=== PATIENT | female | born 1960 ===

== ENCOUNTER 2017-01-17 18:06 | Inpatient (IN) | payer MEDICAID ==
[2017-01-17] MEDS ORDERED: Sodium Chloride 0.9% 1,000 ML IV STA (18:56)
--- NOTE | 2017-01-17 19:22 | ED PDOC ---
HPI: Abdomen Time Seen by Provider: 01/17/17 18:36 Chief Complaint (Nursing): Abdominal Pain Chief Complaint (Provider): Abdominal Pain History Per: Patient History/Exam Limitations: no limitations Onset/Duration Of Symptoms: Hrs (x1 hr) Current Symptoms Are (Timing): Still Present Additional Complaint(s): 56 y/o female presents to the emergency department with a complaint of a sharp abdominal pain that began about 1 hour prior to arrival. Associated with 1 episode of vomiting. Reports last normal bowel movement was today. Denies constipation and fever. Past Medical History Reviewed: Historical Data, Nursing Documentation, Vital Signs Vital Signs: Last Vital Signs Temp 98.5 F 01/17/17 18:29 Pulse 63 01/17/17 18:29 Resp 17 01/17/17 18:29 BP 124/76 01/17/17 18:29 Pulse Ox 98 01/17/17 21:55 - Medical History PMH: No Chronic Diseases - Surgical History Other surgeries: Tubal Ligation - Family History Family History: States: Unknown Family Hx - Social History Current smoker - smoking cessation education provided: No Alcohol: None Drugs: Denies - Allergies Allergies/Adverse Reactions: Allergies Allergy/AdvReac Type Severity Reaction Status Date / Time sulfamethoxazole Allergy RASH Verified 01/17/17 18:32 [From Bactrim] trimethoprim [From Bactrim] Allergy RASH Verified 01/17/17 18:32 Review of Systems ROS Statement: Except As Marked, All Systems Reviewed And Found Negative Constitutional: Negative for: Fever Gastrointestinal: Positive for: Vomiting (1 episode), Abdominal Pain. Negative for: Constipation Physical Exam - Reviewed Nursing Documentation Reviewed: Yes Vital Signs Reviewed: Yes - Physical Exam Appears: Positive for: Non-toxic, In Acute Distress (Mild) Head Exam: Positive for: ATRAUMATIC, NORMAL INSPECTION, NORMOCEPHALIC Skin: Positive for: Normal Color, Warm, Dry Cardiovascular/Chest: Positive for: Regular Rate, Rhythm. Negative for: Murmur Respiratory: Positive for: Normal Breath Sounds. Negative for: Accessory Muscle Use, Respiratory Distress Gastrointestinal/Abdominal: Positive for: Soft, Tenderness (Epigastric and RUQ tenderness). Negative for: Normal Exam, Guarding, Rebound Extremity: Positive for: Normal ROM. Negative for: Pedal Edema Neurologic/Psych: Positive for: Alert, Oriented (x3) - Laboratory Results Result Diagrams: 01/17/17 19:25 01/17/17 19:25 - ECG O2 Sat by Pulse Oximetry: 98 (RA) Pulse Ox Interpretation: Normal Medical Decision Making Medical Decision Making: Time: 1857 Initial Impression: Abdominal Pain Initial Plan: --EKG --CMP --Lipase --Urine DIP --CBC w/ diff --PTT & Prothrombin --Morphine 2 mg IV --Sodium Chloride 1L mls/hr --Zofran 4 mg IV --Urinalysis --Abdomen US --Reevaluation Time: 2052 --Abdomen US FINDINGS: Liver: Normal echogenicity. No mass. No intrahepatic bile duct dilatation. Gallbladder: Gallstones. No wall thickening. No pericholecystic fluid. No sonographic Ardon's sign. Common bile duct: Up to 0.71 cm in diameter. No stones. Pancreas: Unremarkable as visualized. Right kidney: Normal echogenicity. No hydronephrosis. IMPRESSION: 1. Cholelithiasis. 2. Mild biliary ductal dilatation. Consider MRCP Time: 2199 Admit to hospital routine: As inpatient in Med/Surg for cholelithiasis and r/o choledocholithiasis under the care of Dr. Lucio Christian MD Scribe Attestation: Documented by Sandra Aviles, acting as a scribe for Caterina Combs MD. Provider Scribe Attestation: All medical record entries made by the Scribe were at my direction and personally dictated by me. I have reviewed the chart and agree that the record accurately reflects my personal performance of the history, physical exam, medical decision making, and the department course for this patient. I have also personally directed, reviewed, and agree with the discharge instructions and disposition. Disposition - Patient ED Disposition Is Patient to be Admitted: Yes (As inpatient in Med/Surg under the care of Dr. Lucio Christian) Counseled Patient/Family Regarding: Diagnosis - Disposition Disposition Time: 22:00 Condition: FAIR
[2017-01-17 19:32] LABS: BASO % 0.4 % (0.0-2.0); EOS # 0.1 K/uL (0.0-0.7); EOS % 0.8 % (0.0-4.0); HEMATOCRIT 41.7 % (34.0-47.0); MEAN CELL VOLUME 87.2 fl (81.0-99.0); MEAN CORPUSCULAR HEMOGLOBIN 28.9 pg (27.0-31.0); MEAN CORPUSCULAR HGB CONC 33.1 g/dL (33.0-37.0); MEAN PLATELET VOLUME 10.4 fl (7.2-11.7); MONO # 0.5 K/uL (0.0-0.8); MONO % 4.6 % (0.0-10.0); NEUT % 75.2 % (50.0-75.0); RED CELL DISTRIBUTION WIDTH 13.8 % (11.5-14.5); WHITE BLOOD COUNT 10.7 K/uL (4.8-10.8)
[2017-01-17 19:41] LABS: ALB/GLOB RATIO 1.6 (1.0-2.1); ALKALINE PHOSPHATASE 115 U/L (38-126); ALT/SGPT 40 U/L (9-52); AST/SGOT 35 U/L (14-36); BILIRUBIN,TOTAL 0.5 mg/dl (0.2-1.3); BLOOD UREA NITROGEN 25 mg/dl (7-17); CALCIUM 10.1 mg/dL (8.4-10.2); CARBON DIOXIDE 26 mmol/L (22-30); CHLORIDE 104 mmol/L (98-107); GFR AFRICAN-AMERICAN > 60; GLUCOSE,RANDOM 115 mg/dL (65-105); LIPASE 53 U/L (23-300); PARTIAL THROMBOPLASTIN TIME 31.9 Seconds (25.6-37.1); POTASSIUM 4.5 MMOL/L (3.6-5.0); SODIUM 145 mmol/l (132-148); TOTAL PROTEIN 7.7 G/DL (6.3-8.2)
[2017-01-17 20:17] LABS: RBC URINE 15 /hpf (0-3); URINE BACTERIA RARE (<OCC); URINE BILIRUBIN NEGATIVE (NEGATIVE); URINE BLOOD MODERATE (NEGATIVE); URINE COLOR YELLOW (YELLOW); URINE GLUCOSE (UA) NEG (Normal); URINE KETONE 20 mg/dL (NEGATIVE); URINE LEUKOCYTE ESTERASE NEG Leu/uL (Negative); URINE PROTEIN 30 mg/dL (NEGATIVE); URINE UROBILINOGEN 0.2-1.0 mg/dL (0.2-1.0); WBC URINE 1 /hpf (0-5)
--- NOTE | 2017-01-17 20:53 | US ---
EXAM: US Abdomen Limited, Right Upper Quadrant CLINICAL HISTORY: 56 years old, female; Pain; Abdominal pain; Epigastric; Additional info: Epigastric/ruq pain TECHNIQUE: Real-time ultrasound of the right upper quadrant with image documentation. COMPARISON: No relevant prior studies available. FINDINGS: Liver: Normal echogenicity. No mass. No intrahepatic bile duct dilatation. Gallbladder: Gallstones. No wall thickening. No pericholecystic fluid. No sonographic Ardon's sign. Common bile duct: Up to 0.71 cm in diameter. No stones. Pancreas: Unremarkable as visualized. Right kidney: Normal echogenicity. No hydronephrosis. IMPRESSION: 1. Cholelithiasis. 2. Mild biliary ductal dilatation. Consider MRCP.
--- NOTE | 2017-01-18 00:32 | CP.PCM.CON ---
<July Acevedo - Last Filed: 01/18/17 00:27> History of Present Illness - History of Present Illness History of Present Illness: Surgery: Dr. Salmeron Reason for consult: cholelithiasis CC: RUQ abdominal pain HPI: Patient is a 56 y/o female who presents complaining of acute onset RUQ abdominal pain that started around 5pm this evening. She states she was sitting at her desk with the pain started acutely. She describes the pain as sharp stabbing and nonradiating. She reports associated nausea and vomiting x 1 episode. She denies having pain like this in the past. She reports having pork chop with sofia for lunch due to her new Damir's diet. She states she started the low carb high fat diet at the end of November and has since lost almost 30lbs. She also reports being on an appetite suppressant medication for the past 3 months prescribes by her doctor. She denies f/c constipation or diarrhea. PMH: PSH: tubal ligation, lipoma excision from right upper back Social: denies etoh, drug abuse. Review of Systems - Review of Systems All systems: reviewed and no additional remarkable complaints except Review of Systems: unless states in HPI Past Patient History - Past Medical History & Family History Past Medical History?: Yes - Past Social History Smoking Status: Never Smoked - MUSCULOSKELETAL/RHEUMATOLOGICAL Hx Falls: No - PSYCHIATRIC Hx Substance Use: No - SURGICAL HISTORY Hx Tubal Ligation: Yes Other/Comment: Lipoma to back - ANESTHESIA Hx Anesthesia: Yes Hx Anesthesia Reactions: No Meds Allergies/Adverse Reactions: Allergies Allergy/AdvReac Type Severity Reaction Status Date / Time sulfamethoxazole Allergy RASH Verified 01/17/17 18:32 [From Bactrim] trimethoprim [From Bactrim] Allergy RASH Verified 01/17/17 18:32 - Medications Medications: Current Medications Famotidine (Pepcid) 20 mg IVP Q12 [facility] Morphine Sulfate (Morphine) 4 mg IVP Q4 PRN PRN Reason: pain 6-10 Ondansetron HCl (Zofran Inj) 4 mg IVP Q6 PRN PRN Reason: Nausea/Vomiting Physical Exam - Constitutional Appears: Non-toxic, No Acute Distress - Head Exam Head Exam: ATRAUMATIC, NORMOCEPHALIC - Eye Exam Eye Exam: EOMI, Normal appearance - ENT Exam ENT Exam: Mucous Membranes Moist - Respiratory Exam Respiratory Exam: NORMAL BREATHING PATTERN. absent: Respiratory Distress - Cardiovascular Exam Cardiovascular Exam: REGULAR RHYTHM. absent: Tachycardia - GI/Abdominal Exam GI & Abdominal Exam: Soft. absent: Distended, Guarding, Rebound, Rigid, Tenderness - Extremities Exam Extremities exam: Positive for: normal inspection. Negative for: calf tenderness - Neurological Exam Neurological exam: Alert - Psychiatric Exam Psychiatric exam: Normal Affect, Normal Mood - Skin Skin Exam: Dry, Normal Color, Warm Results - Vital Signs Recent Vital Signs: Last Vital Signs Temp 97.7 F 01/18/17 00:00 Pulse 63 01/18/17 00:00 Resp 19 01/18/17 00:00 BP 133/74 01/18/17 00:00 Pulse Ox 98 01/18/17 00:00 - Labs Result Diagrams: 01/17/17 19:25 01/17/17 19:25 Labs: Laboratory Results - last 24 hr 01/17/17 01/17/17 01/17/17 19:25 19:25 19:25 WBC 10.7 RBC 4.78 Hgb 13.8 Hct 41.7 MCV 87.2 MCH 28.9 MCHC 33.1 RDW 13.8 Plt Count 179 MPV 10.4 Neut % (Auto) 75.2 H Lymph % (Auto) 19.0 L [place] % (Auto) 4.6 Eos % (Auto) 0.8 Baso % (Auto) 0.4 Neut # 8.0 H Lymph # 2.0 Nance # 0.5 Eos # 0.1 Baso # 0.0 PT 11.2 INR 1.0 APTT 31.9 Sodium 145 Potassium 4.5 Chloride 104 Carbon Dioxide 26 Anion Gap 19 BUN 25 H Creatinine 0.8 Est GFR ( Amer) > 60 Est GFR (Non-Af Amer) > 60 Random Glucose 115 H Calcium 10.1 Total Bilirubin 0.5 AST 35 ALT 40 Alkaline Phosphatase 115 Total Protein 7.7 Albumin 4.8 Globulin 2.9 Albumin/Globulin Ratio 1.6 Lipase 53 Urine Color Urine Clarity Urine pH Ur Specific [place] Urine Protein Urine Glucose (UA) Urine Ketones Urine Blood Urine Nitrate Urine Bilirubin Urine Urobilinogen Ur Leukocyte Esterase Urine RBC (Auto) Urine Microscopic WBC Ur Squamous Epith Cells Urine Bacteria 01/17/17 20:00 WBC RBC Hgb Hct MCV MCH MCHC RDW Plt Count MPV Neut % (Auto) Lymph % (Auto) [place] % (Auto) Eos % (Auto) Baso % (Auto) Neut # Lymph # [place] # Eos # Baso # PT INR APTT Sodium Potassium Chloride Carbon Dioxide Anion Gap BUN Creatinine Est GFR ( Amer) Est GFR (Non-Af Amer) Random Glucose Calcium Total Bilirubin AST ALT Alkaline Phosphatase Total Protein Albumin Globulin Albumin/Globulin Ratio Lipase Urine Color Yellow Urine Clarity Slighty-cloudy Urine pH 5.0 Ur Specific [place] 1.028 Urine Protein 30 Urine Glucose (UA) Neg Urine Ketones 20 Urine Blood Moderate Urine Nitrate Negative Urine Bilirubin Negative Urine Urobilinogen 0.2-1.0 Ur Leukocyte Esterase Neg Urine RBC (Auto) 15 H Urine Microscopic WBC 1 Ur Squamous Epith Cells 1 Urine Bacteria Rare Assessment & Plan - Assessment and Plan (Free Text) Assessment: 56 y/o female w/ biliary colic Plan: -MRCP per primary- CBD 7mm -no evidence of acute cholecystitis on imaging or clinical exam -keep NPO for now -IVFs -pain control -am labs -further recs per Dr. Salmeron [facility] PGY3 <Jeremy Salmeron - Last Filed: 01/18/17 10:33> History of Present Illness - History of Present Illness History of Present Illness: Patient was seen and examined at the bedside. Agree with resident's note above. Meds - Medications Medications: Current Medications Famotidine (Pepcid) 20 mg IVP Q12 [facility] Lactated Ringer's (Lactated Ringer's) 1,000 mls @ 100 mls/hr IV .Q10H [facility] Last Admin: 01/18/17 01:00 Dose: 100 mls/hr Morphine Sulfate (Morphine) 4 mg IVP Q4 PRN PRN Reason: pain 6-10 Ondansetron HCl (Zofran Inj) 4 mg IVP Q6 PRN PRN Reason: Nausea/Vomiting Results - Vital Signs Recent Vital Signs: Last Vital Signs Temp 97.8 F 01/18/17 08:15 Pulse 57 L 01/18/17 08:15 Resp 20 01/18/17 08:15 BP 103/65 01/18/17 08:15 Pulse Ox 94 L 01/18/17 08:15 - Labs Result Diagrams: 01/18/17 05:45 01/18/17 05:45 Labs: Laboratory Results - last 24 hr 01/17/17 01/17/17 01/17/17 19:25 19:25 19:25 WBC 10.7 RBC 4.78 Hgb 13.8 Hct 41.7 MCV 87.2 MCH 28.9 MCHC 33.1 RDW 13.8 Plt Count 179 MPV 10.4 Neut % (Auto) 75.2 H Lymph % (Auto) 19.0 L [place] % (Auto) 4.6 Eos % (Auto) 0.8 Baso % (Auto) 0.4 Neut # 8.0 H Lymph # 2.0 Nance # 0.5 Eos # 0.1 Baso # 0.0 PT 11.2 INR 1.0 APTT 31.9 Sodium 145 Potassium 4.5 Chloride 104 Carbon Dioxide 26 Anion Gap 19 BUN 25 H Creatinine 0.8 Est GFR ( Amer) > 60 Est GFR (Non-Af Amer) > 60 Random Glucose 115 H Calcium 10.1 Total Bilirubin 0.5 AST 35 ALT 40 Alkaline Phosphatase 115 Total Protein 7.7 Albumin 4.8 Globulin 2.9 Albumin/Globulin Ratio 1.6 Lipase 53 Urine Color Urine Clarity Urine pH Ur Specific [place] Urine Protein Urine Glucose (UA) Urine Ketones Urine Blood Urine Nitrate Urine Bilirubin Urine Urobilinogen Ur Leukocyte Esterase Urine RBC (Auto) Urine Microscopic WBC Ur Squamous Epith Cells Urine Bacteria 01/17/17 01/18/17 01/18/17 20:00 05:45 05:45 WBC 7.0 RBC 4.38 Hgb 12.8 Hct 38.5 MCV 87.9 MCH 29.3 MCHC 33.3 RDW 14.1 Plt Count 169 MPV 10.6 Neut % (Auto) 52.9 Lymph % (Auto) 38.5 [place] % (Auto) 6.7 Eos % (Auto) 1.6 Baso % (Auto) 0.3 Neut # 3.7 Lymph # 2.7 Nance # 0.5 Eos # 0.1 Baso # 0.0 PT INR APTT Sodium 143 Potassium 4.3 Chloride 111 H Carbon Dioxide 21 L Anion Gap 15 BUN 16 Creatinine 0.7 Est GFR ( Amer) > 60 Est GFR (Non-Af Amer) > 60 Random Glucose 89 Calcium 9.3 Total Bilirubin 0.4 AST 30 ALT 35 Alkaline Phosphatase 99 Total Protein 6.4 Albumin 3.8 Globulin 2.6 Albumin/Globulin Ratio 1.4 Lipase 29 Urine Color Yellow Urine Clarity Slighty-cloudy Urine pH 5.0 Ur Specific [place] 1.028 Urine Protein 30 Urine Glucose (UA) Neg Urine Ketones 20 Urine Blood Moderate Urine Nitrate Negative Urine Bilirubin Negative Urine Urobilinogen 0.2-1.0 Ur Leukocyte Esterase Neg Urine RBC (Auto) 15 H Urine Microscopic WBC 1 Ur Squamous Epith Cells 1 Urine Bacteria Rare - Imaging and Cardiology US - abdomen Status: Image reviewed by me, Report reviewed by me Assessment & Plan - Assessment and Plan (Free Text) Plan: - NPO - IV fluids - pain control - MRCP - If MRCP normal will need cholecystectomy - Will follow
[2017-01-18] MEDS: Lactated Ringer's 1,000 ML IV SCH ×2 (01:00→10:35)
[2017-01-18 06:41] LABS: ALB/GLOB RATIO 1.4 (1.0-2.1); ALKALINE PHOSPHATASE 99 U/L (38-126); ALT/SGPT 35 U/L (9-52); AST/SGOT 30 U/L (14-36); BILIRUBIN,TOTAL 0.4 mg/dl (0.2-1.3); BLOOD UREA NITROGEN 16 mg/dl (7-17); CALCIUM 9.3 mg/dL (8.4-10.2); CARBON DIOXIDE 21 mmol/L (22-30); CHLORIDE 111 mmol/L (98-107); GFR AFRICAN-AMERICAN > 60; GLUCOSE,RANDOM 89 mg/dL (65-105); LIPASE 29 U/L (23-300); POTASSIUM 4.3 MMOL/L (3.6-5.0); SODIUM 143 mmol/l (132-148); TOTAL PROTEIN 6.4 G/DL (6.3-8.2)
[2017-01-18 07:11] LABS: BASO % 0.3 % (0.0-2.0); EOS # 0.1 K/uL (0.0-0.7); EOS % 1.6 % (0.0-4.0); HEMATOCRIT 38.5 % (34.0-47.0); LYMPH # 2.7 K/uL (1.0-4.3); LYMPH % 38.5 % (20.0-40.0); MEAN CELL VOLUME 87.9 fl (81.0-99.0); MEAN CORPUSCULAR HEMOGLOBIN 29.3 pg (27.0-31.0); MEAN CORPUSCULAR HGB CONC 33.3 g/dL (33.0-37.0); MEAN PLATELET VOLUME 10.6 fl (7.2-11.7); MONO # 0.5 K/uL (0.0-0.8); MONO % 6.7 % (0.0-10.0); NEUT # 3.7 K/uL (1.8-7.0); NEUT % 52.9 % (50.0-75.0); NRBC % 0.1 % (0.0-0.0); RED CELL DISTRIBUTION WIDTH 14.1 % (11.5-14.5)
--- NOTE | 2017-01-18 07:18 | CP.PCM.HP ---
History of Present Illness - History of Present Illness History of Present Illness: pt admitted for dialated cbd. had ruq pain last night but at present just sore. seen w/ surgical residents mrcp pending. bw noted. no f/c, n/v/d. has been on atkins diet and taking weight loss meds Present on Admission - Present on Admission Any Indicators Present on Admission: No Review of Systems - Gastrointestinal Gastrointestinal: As Per HPI, Abdominal Pain Past Patient History - Past Medical History & Family History Past Medical History?: Yes - Past Social History Smoking Status: Never Smoked - MUSCULOSKELETAL/RHEUMATOLOGICAL Hx Falls: No - PSYCHIATRIC Hx Substance Use: No - SURGICAL HISTORY Hx Tubal Ligation: Yes Other/Comment: Lipoma to back - ANESTHESIA Hx Anesthesia: Yes Hx Anesthesia Reactions: No Meds Allergies/Adverse Reactions: Allergies Allergy/AdvReac Type Severity Reaction Status Date / Time sulfamethoxazole Allergy RASH Verified 01/17/17 18:32 [From Bactrim] trimethoprim [From Bactrim] Allergy RASH Verified 01/17/17 18:32 Physical Exam - Constitutional Appears: Well, Non-toxic, No Acute Distress - Head Exam Head Exam: ATRAUMATIC, NORMAL INSPECTION, NORMOCEPHALIC - Eye Exam Eye Exam: EOMI, Normal appearance, PERRL Pupil Exam: NORMAL ACCOMODATION, PERRL - ENT Exam ENT Exam: Mucous Membranes Moist, Normal Exam - Neck Exam Neck exam: Positive for: Normal Inspection - Respiratory Exam Respiratory Exam: Clear to Auscultation Bilateral, NORMAL BREATHING PATTERN - Cardiovascular Exam Cardiovascular Exam: REGULAR RHYTHM, RRR, +S1, +S2 - GI/Abdominal Exam GI & Abdominal Exam: Normal Bowel Sounds, Soft. absent: Tenderness - Extremities Exam Extremities exam: Positive for: full ROM, normal capillary refill, normal inspection, pedal pulses present - Back Exam Back exam: NORMAL INSPECTION - Neurological Exam Neurological exam: Alert, CN II-XII Intact, Normal Gait, Oriented x3, Reflexes Normal - Psychiatric Exam Psychiatric exam: Normal Affect, Normal Mood - Skin Skin Exam: Dry, Intact, Normal Color, Warm Results - Vital Signs Recent Vital Signs: Last Vital Signs Temp 97.7 F 01/18/17 00:00 Pulse 63 01/18/17 00:00 Resp 19 01/18/17 00:00 BP 133/74 01/18/17 00:00 Pulse Ox 98 01/18/17 00:00 - Labs Result Diagrams: 01/18/17 05:45 01/18/17 05:45 Labs: Laboratory Results - last 24 hr 01/17/17 01/17/17 01/17/17 19:25 19:25 19:25 WBC 10.7 RBC 4.78 Hgb 13.8 Hct 41.7 MCV 87.2 MCH 28.9 MCHC 33.1 RDW 13.8 Plt Count 179 MPV 10.4 Neut % (Auto) 75.2 H Lymph % (Auto) 19.0 L [place] % (Auto) 4.6 Eos % (Auto) 0.8 Baso % (Auto) 0.4 Neut # 8.0 H Lymph # 2.0 [place] # 0.5 Eos # 0.1 Baso # 0.0 PT 11.2 INR 1.0 APTT 31.9 Sodium 145 Potassium 4.5 Chloride 104 Carbon Dioxide 26 Anion Gap 19 BUN 25 H Creatinine 0.8 Est GFR ( Amer) > 60 Est GFR (Non-Af Amer) > 60 Random Glucose 115 H Calcium 10.1 Total Bilirubin 0.5 AST 35 ALT 40 Alkaline Phosphatase 115 Total Protein 7.7 Albumin 4.8 Globulin 2.9 Albumin/Globulin Ratio 1.6 Lipase 53 Urine Color Urine Clarity Urine pH Ur Specific [place] Urine Protein Urine Glucose (UA) Urine Ketones Urine Blood Urine Nitrate Urine Bilirubin Urine Urobilinogen Ur Leukocyte Esterase Urine RBC (Auto) Urine Microscopic WBC Ur Squamous Epith Cells Urine Bacteria 01/17/17 01/18/17 01/18/17 20:00 05:45 05:45 WBC 7.0 RBC 4.38 Hgb 12.8 Hct 38.5 MCV 87.9 MCH 29.3 MCHC 33.3 RDW 14.1 Plt Count 169 MPV 10.6 Neut % (Auto) 52.9 Lymph % (Auto) 38.5 [place] % (Auto) 6.7 Eos % (Auto) 1.6 Baso % (Auto) 0.3 Neut # 3.7 Lymph # 2.7 [place] # 0.5 Eos # 0.1 Baso # 0.0 PT INR APTT Sodium 143 Potassium 4.3 Chloride 111 H Carbon Dioxide 21 L Anion Gap 15 BUN 16 Creatinine 0.7 Est GFR ( Amer) > 60 Est GFR (Non-Af Amer) > 60 Random Glucose 89 Calcium 9.3 Total Bilirubin 0.4 AST 30 ALT 35 Alkaline Phosphatase 99 Total Protein 6.4 Albumin 3.8 Globulin 2.6 Albumin/Globulin Ratio 1.4 Lipase 29 Urine Color Yellow Urine Clarity Slighty-cloudy Urine pH 5.0 Ur Specific [place] 1.028 Urine Protein 30 Urine Glucose (UA) Neg Urine Ketones 20 Urine Blood Moderate Urine Nitrate Negative Urine Bilirubin Negative Urine Urobilinogen 0.2-1.0 Ur Leukocyte Esterase Neg Urine RBC (Auto) 15 H Urine Microscopic WBC 1 Ur Squamous Epith Cells 1 Urine Bacteria Rare Assessment & Plan (1) Common bile duct dilatation Assessment and Plan: mrcp pain control surgery npo until p mri Status: Acute (2) Biliary colic Assessment and Plan: mrcp surgery pain control Status: Acute (3) DVT prophylaxis Assessment and Plan: scd nad aehose ambulation Status: Acute Decision To Admit - Pt Status Changed To: Hospital Disposition Of: Inpatient - Admit Certification Admit to Inpatient:: After my assessment, the patient will require hospitalization for at least two midnights. This is because of the severity of symptoms shown, intensity of services needed, and/or the medical risk in this patient being treated as an outpatient. - . Bed Request Type: Med/Surg Admitting Physician: Lucio Christian
--- NOTE | 2017-01-18 09:54 | CP.PCM.PN ---
<Jorgito Morris - Last Filed: 01/18/17 09:51> Subjective - Date & Time of Evaluation Date of Evaluation: 01/18/17 Time of Evaluation: 07:20 - Subjective Subjective: General Surgery Pt S&E, NAEO. Denies pain today, feeling better. No complaints this AM. Objective - Vital Signs/Intake and Output Vital Signs (last 24 hours): Temp Pulse Resp BP Pulse Ox 97.8 F 57 L 20 103/65 94 L 01/18/17 08:15 01/18/17 08:15 01/18/17 08:15 01/18/17 08:15 01/18/17 08:15 - Medications Medications: Current Medications Famotidine (Pepcid) 20 mg IVP Q12 [facility] Lactated Ringer's (Lactated Ringer's) 1,000 mls @ 100 mls/hr IV .Q10H [facility] Last Admin: 01/18/17 01:00 Dose: 100 mls/hr Morphine Sulfate (Morphine) 4 mg IVP Q4 PRN PRN Reason: pain 6-10 Ondansetron HCl (Zofran Inj) 4 mg IVP Q6 PRN PRN Reason: Nausea/Vomiting - Labs Labs: 01/18/17 05:45 01/18/17 05:45 PT 11.2 Seconds (9.8-13.1) 01/17/17 19:25 INR 1.0 (0.9-1.2) 01/17/17 19:25 APTT 31.9 Seconds (25.6-37.1) 01/17/17 19:25 - Constitutional Appears: Non-toxic, No Acute Distress - Head Exam Head Exam: ATRAUMATIC, NORMOCEPHALIC - Eye Exam Eye Exam: EOMI. absent: Scleral icterus - Respiratory Exam Respiratory Exam: NORMAL BREATHING PATTERN. absent: Respiratory Distress - GI/Abdominal Exam GI & Abdominal Exam: Soft. absent: Distended, Firm, Guarding, Rigid, Tenderness - Neurological Exam Neurological Exam: Alert, Awake - Skin Skin Exam: Dry, Warm Assessment and Plan - Assessment and Plan (Free Text) Assessment: 56F w/ biliary colic and cholelithiasis Plan: F/U MRCP results Pain control PRN Serial abd exams D/W Dr. Jaron Morris PGY4 <Jeremy Salmeron - Last Filed: 01/18/17 10:40> Subjective - Date & Time of Evaluation Time of Evaluation: 10:05 - Subjective Subjective: Patient was seen and examined at the bedside. Agree with resident's note above. Objective - Vital Signs/Intake and Output Vital Signs (last 24 hours): Temp Pulse Resp BP Pulse Ox 97.8 F 57 L 20 103/65 94 L 01/18/17 08:15 01/18/17 08:15 01/18/17 08:15 01/18/17 08:15 01/18/17 08:15 - Medications Medications: Current Medications Famotidine (Pepcid) 20 mg IVP Q12 [facility] Last Admin: 01/18/17 10:30 Dose: 20 mg Lactated Ringer's (Lactated Ringer's) 1,000 mls @ 100 mls/hr IV .Q10H [facility] Last Admin: 01/18/17 10:35 Dose: Not Given Morphine Sulfate (Morphine) 4 mg IVP Q4 PRN PRN Reason: pain 6-10 Ondansetron HCl (Zofran Inj) 4 mg IVP Q6 PRN PRN Reason: Nausea/Vomiting - Labs Labs: 01/18/17 05:45 01/18/17 05:45 PT 11.2 Seconds (9.8-13.1) 01/17/17 19:25 INR 1.0 (0.9-1.2) 01/17/17 19:25 APTT 31.9 Seconds (25.6-37.1) 01/17/17 19:25
--- NOTE | 2017-01-18 10:33 | CARD ---
APPROVED REPORT EKG Measurement Heart [id number] <Conclusion> Sinus bradycardia Otherwise normal ECG
--- NOTE | 2017-01-18 16:01 | MRI ---
MRCP Indication: Cholelithiasis with CBD Technique: Multiplanar, multisequence MR images of the abdomen were obtained, including heavily T2 weighted MRCP images of the biliary system. Rotating maximum intensity projection images of the biliary system were generated. A total of 534 images were submitted for review. Comparison: Limited abdominal ultrasound performed 01/17/17 Findings: The liver appears grossly unremarkable on this noncontrast examination. The gallbladder appears distended with gallbladder wall thickening/pericholecystic edema evident. Tiny probable gallstones. There is no intrahepatic biliary ductal dilatation. The common bile duct appears within normal limits in caliber and tapers distally. The pancreatic duct appears within normal limits of caliber. No filling defects are seen in the common bile duct or pancreatic duct. The imaged portions of the noncontrast adrenal glands, kidneys, spleen, and pancreas appear unremarkable. No bulky abdominal lymphadenopathy is seen. No ascites. Abnormal signal intensity involving L3 vertebral body of unclear significance on limited sagittal T2 provided views. Recommend dedicated MRI of the lumbar spine for further evaluation. Impression: No filling defects seen within the common bile duct which appears within normal limits of caliber. Distended gallbladder with pericholecystic edema/wall thickening evident. Tiny probable gallstones. Correlate clinically for acute cholecystitis. Abnormal signal intensity involving L3 vertebral body of unclear significance on limited sagittal T2 provided views. Recommend dedicated MRI of the lumbar spine for further evaluation.
[2017-01-18 16:32] VITALS: BP 119/75; PULSE 55; RESP 18; TEMP 98.1; O2SAT 100
[2017-01-18] MEDS ORDERED: Amoxicillin-Clav 875-125 mg Tab PO SCH (17:00)
--- NOTE | 2017-01-19 18:35 | CP.PCM.DIS ---
Provider - Provider Date of Admission: 01/17/17 22:00 Attending physician: Lucio Christian MD Time Spent in preparation of Discharge (in minutes): 15 Diagnosis - Discharge Diagnosis (1) Common bile duct dilatation Status: Acute (2) Biliary colic Status: Acute (3) DVT prophylaxis Status: Acute Hospital Course - Lab Results Lab Results: Most Recent Lab Values WBC 7.0 K/uL (4.8-10.8) 01/18/17 05:45 RBC 4.38 Mil/uL (3.80-5.20) 01/18/17 05:45 Hgb 12.8 g/dL (12.0-16.0) 01/18/17 05:45 Hct 38.5 % (34.0-47.0) 01/18/17 05:45 MCV 87.9 fl (81.0-99.0) 01/18/17 05:45 MCH 29.3 pg (27.0-31.0) 01/18/17 05:45 MCHC 33.3 g/dL (33.0-37.0) 01/18/17 05:45 RDW 14.1 % (11.5-14.5) 01/18/17 05:45 Plt Count 169 K/uL (130-400) 01/18/17 05:45 MPV 10.6 fl (7.2-11.7) 01/18/17 05:45 Neut % (Auto) 52.9 % (50.0-75.0) 01/18/17 05:45 Lymph % (Auto) 38.5 % (20.0-40.0) 01/18/17 05:45 [place] % (Auto) 6.7 % (0.0-10.0) 01/18/17 05:45 Eos % (Auto) 1.6 % (0.0-4.0) 01/18/17 05:45 Baso % (Auto) 0.3 % (0.0-2.0) 01/18/17 05:45 Neut # 3.7 K/uL (1.8-7.0) 01/18/17 05:45 Lymph # 2.7 K/uL (1.0-4.3) 01/18/17 05:45 [place] # 0.5 K/uL (0.0-0.8) 01/18/17 05:45 Eos # 0.1 K/uL (0.0-0.7) 01/18/17 05:45 Baso # 0.0 K/uL (0.0-0.2) 01/18/17 05:45 PT 11.2 Seconds (9.8-13.1) 01/17/17 19:25 INR 1.0 (0.9-1.2) 01/17/17 19:25 APTT 31.9 Seconds (25.6-37.1) 01/17/17 19:25 Sodium 143 mmol/l (132-148) 01/18/17 05:45 Potassium 4.3 MMOL/L (3.6-5.0) 01/18/17 05:45 Chloride 111 mmol/L (98-107) H 01/18/17 05:45 Carbon Dioxide 21 mmol/L (22-30) L 01/18/17 05:45 Anion Gap 15 (10-20) 01/18/17 05:45 BUN 16 mg/dl (7-17) 01/18/17 05:45 Creatinine 0.7 mg/dL (0.7-1.2) 01/18/17 05:45 Est GFR ( Amer) > 60 01/18/17 05:45 Est GFR (Non-Af Amer) > 60 01/18/17 05:45 Random Glucose 89 mg/dL (65-105) 01/18/17 05:45 Calcium 9.3 mg/dL (8.4-10.2) 01/18/17 05:45 Total Bilirubin 0.4 mg/dl (0.2-1.3) 01/18/17 05:45 AST 30 U/L (14-36) 01/18/17 05:45 ALT 35 U/L (9-52) 01/18/17 05:45 Alkaline Phosphatase 99 U/L (38-126) 01/18/17 05:45 Total Protein 6.4 G/DL (6.3-8.2) 01/18/17 05:45 Albumin 3.8 g/dL (3.5-5.0) 01/18/17 05:45 Globulin 2.6 gm/dL (2.2-3.9) 01/18/17 05:45 Albumin/Globulin Ratio 1.4 (1.0-2.1) 01/18/17 05:45 Lipase 29 U/L (23-300) 01/18/17 05:45 Urine Color Yellow (YELLOW) 01/17/17 20:00 Urine Clarity Slighty-cloudy (Clear) 01/17/17 20:00 Urine pH 5.0 (5.0-8.0) 01/17/17 20:00 Ur Specific [place] 1.028 (1.003-1.030) 01/17/17 20:00 Urine Protein 30 mg/dL (NEGATIVE) 01/17/17 20:00 Urine Glucose (UA) Neg mg/dL (Normal) 01/17/17 20:00 Urine Ketones 20 mg/dL (NEGATIVE) 01/17/17 20:00 Urine Blood Moderate (NEGATIVE) 01/17/17 20:00 Urine Nitrate Negative (NEGATIVE) 01/17/17 20:00 Urine Bilirubin Negative (NEGATIVE) 01/17/17 20:00 Urine Urobilinogen 0.2-1.0 mg/dL (0.2-1.0) 01/17/17 20:00 Ur Leukocyte Esterase Neg [place]/uL (Negative) 01/17/17 20:00 Urine RBC (Auto) 15 /hpf (0-3) H 01/17/17 20:00 Urine Microscopic WBC 1 /hpf (0-5) 01/17/17 20:00 Ur Squamous Epith Cells 1 /hpf (0-5) 01/17/17 20:00 Urine Bacteria Rare (<OCC) 01/17/17 20:00 Discharge Exam - Head Exam Head Exam: ATRAUMATIC, NORMOCEPHALIC Discharge Plan - Discharge Medications Prescriptions: Amoxicillin/Clavulanate [Augmentin 875 MG-125 MG] 1 tab PO BID #14 tab - Follow Up Plan Condition: FAIR Disposition: HOME/ ROUTINE Instructions: Gallstones (GEN), Magnetic Resonance Cholangiopancreatography (DC ) Additional Instructions: As per Dr. Chaudhary, patient is to follow-up with PMD Dr. Vasquez and that someone from Dr. Lyons's office (surgeon) will get in touch with the patient; prescription for patient already called in to (patient's) pharmacy. final dx-cholelithiasis. cleared by dr lyons for dc. btol po rted prn, meds permed rec
== END 2017-01-18 18:32 | disposition home or self-care (01) | DRG 208 ==
LOC: H.ER 18:06 → H.ERHOLD 22:00 → H.MEDSURG1 23:35
PROVIDERS: ADMIT Family Medicine; ATTEND Family Medicine
DX: K80.20 Calculus of gallbladder without cholecystitis without obstruction (principal); K83.8 Other specified diseases of biliary tract; Z88.2 Allergy status to sulfonamides; Z98.51 Tubal ligation status

== ENCOUNTER 2017-02-08 06:23 | Day surgery (SDC) | payer MEDICAID ==
[2017-02-03 15:05] VITALS: BMI 29.5
[2017-02-08] MEDS ORDERED: Lactated Ringer's 1,000 ML IV ONE (07:30)
[2017-02-08] MEDS ORDERED: Bupivacaine 0.5% Inj(30mL) ONE (07:33)
[2017-02-08] MEDS ORDERED: ceFAZolin IV 1 gm in Dextrose 1 GM/50 ML BAG IVPB ONE (07:34)
[2017-02-08] MEDS ORDERED: Propofol 10 mg/ml Inj (20 ML) ONE (07:38)
[2017-02-08] MEDS ORDERED: Midazolam 2 MG/2 ML VIAL ONE (07:39)
[2017-02-08] MEDS ORDERED: Rocuronium 10 mg/ml (5 ml) ONE (07:39)
[2017-02-08] MEDS ORDERED: Succinylcholine 200 mg/10 ml Inj IV ONE (07:39)
[2017-02-08] MEDS ORDERED: Lidocaine 4% (Laryng-O-Jet) Kit MM ONE (07:39)
[2017-02-08] MEDS ORDERED: Dexamethasone 4 mg/1 ml ONE (11:23)
[2017-02-08] MEDS ORDERED: Neostigmine Methylsulfate 3mg/3ml Syringe IV ONE (11:31)
--- NOTE | 2017-02-08 12:12 | PCM.SURG1 ---
Surgeon's Initial Post Op Note - Surgeon's Notes Surgeon: Dr. Salmeron Heater Tender: Dr. Haskins, Dr. Olivas PGY3, PGY1 Pre-Operative Diagnosis: Symptomatic Cholelithiasis Operative Findings: see op note Post-Operative Diagnosis: as above Operation Performed: laparoscopic cholecystectomy Specimen/Specimens Removed: gallbladder Estimated Blood Loss: EBL {In ML}: 5 Post-Op Condition: Good Date of Surgery/Procedure: 02/08/17 Time of Surgery/Procedure: 11:45
[2017-02-08] MEDS ORDERED: Oxycodone/Acetaminophen 5/325 mg Tab PO ONE (12:19)
[2017-02-08 12:34] VITALS: RESP 18
[2017-02-08] MEDS: HYDROmorphone 0.5 mg/0.5 ml ISec IVP PRN ×2 (12:35→13:20)
--- NOTE | 2017-02-08 16:24 | OP ---
PROCEDURE DATE: PREOPERATIVE DIAGNOSIS: Symptomatic cholelithiasis. POSTOPERATIVE DIAGNOSIS: Symptomatic cholelithiasis. PROCEDURE: Laparoscopic cholecystectomy. SURGEON: Jeremy Salmeron MD. VOCATIONAL TRAINING DIRECTOR: Jozef. SECOND APPLICATIONS SALES REPRESENTATIVE: Brendon. TYPE OF ANESTHESIA: General with endotracheal intubation. ANESTHESIA ADMINISTERED BY: Hudson Samson MD. IV FLUIDS: Crystalloids. ESTIMATED BLOOD LOSS: 5 mL. INTRAOPERATIVE FINDINGS: Cholelithiasis. SPECIMEN: Gallbladder with stones. BRIEF HISTORY: Mrs. Bosch is a very pleasant 56-year-old female who initially presented to the hospital complaining of epigastric right upper quadrant abdominal pain and upon further investigation, was found to have gallstones. All the risks and benefits of the procedure were explained to the patient and with the patient having a full understanding of all the risks and benefits involved, informed consent was obtained and the patient was taken to the operating room for above stated procedure. DESCRIPTION OF PROCEDURE: The patient was brought into the operating room and placed supine on the operating table. Bilateral Flowtron boots were applied to the patient's lower extremities. After successful induction of anesthesia and successful endotracheal intubation by the Anesthesia team, the patient received prophylactic Ancef antibiotic. The patient's abdomen was prepped with ChloraPrep stick and draped in a standard surgical fashion. Prior to the beginning of the procedure, time-out was called in the room and everyone in the room were in agreement. Using Veress needle, the patient's abdomen was entered at the umbilicus and pneumoperitoneum was achieved with good opening pressures. Once this was accomplished, using an 11 blade scalpel knife, approximately 1 cm incision was made in the umbilicus in a longitudinal fashion and subsequent to that, 11 mm trocar was introduced into the patient's abdomen. At that point in time, 5 mm 0-degree scope was introduced into the patient's abdomen and abdomen was inspected and then attention was turned to the subxiphoid area. Using an 11 blade scalpel knife, 5 mm incision was made in the transverse fashion and subsequent to that, another 5 mm trocar was introduced into the patient's abdomen. Subsequent to that, attention was turned to the right side of the patient's abdomen. Using an 11 blade scalpel knife, two 5 mm incisions were made in a transverse fashion on the right side of the patient's abdomen and subsequent to that, another two 5 mm trocars were introduced into the patient's abdomen. At that point in time, gallbladder was grasped at the fundus and the infundibulum, and using [place] dissector, cystic duct and cystic artery were dissected out and critical view of safety was achieved. Once this was accomplished, the cystic duct was clipped with two clips proximal and one distal and transected with laparoscopic scissor. Same thing was done for the cystic artery, it was clipped with two clips proximal and one distal and transected with laparoscopic scissors. Subsequent to that, gallbladder was dissected off the gallbladder fossa using hook electrical cautery and once the gallbladder was completely freed up from the gallbladder fossa, an EndoCatch bag was introduced into the patient's abdomen. Gallbladder was placed inside of the bag and the bag was closed. At that point in time, gallbladder fossa was inspected for hemostasis. Hemostasis was confirmed. The 11 mm trocar together with the EndoCatch bag and gallbladder were removed from the patient's abdomen and passed off to the [facility] as a specimen. Fascial layer at the umbilical port site was closed with one interrupted 0-Vicryl suture on UR-5 needle. Fascial layer at the 11 mm trocar site was closed with 3 interrupted 0-Vicryl sutures on UR-6 needle. Subsequent to that, the patient's abdomen was fully desufflated. The rest of the trocars were removed from the patient's abdomen and skin was closed with 4-0 Monocryl suture in a running subcuticular fashion. At the end of the procedure, incision sites were infiltrated with Marcaine anesthetic. The patient's abdomen was washed and dried and Dermabond was applied to the incision sites. The patient was successfully extubated by the Anesthesia team and [facility] and taken to the recovery room in a stable condition. At the end of the procedure, all instrument counts, needles, and sponges were correct. Jeremy Salmeron MD
[2017-02-08 17:30] VITALS: BP 134/73; PULSE 80; TEMP 98.5; O2SAT 99
== END 2017-02-08 17:35 | disposition home or self-care (01) ==
LOC: H.OPSURG 06:23
PROVIDERS: ATTEND Surgery
DX: K80.10 Calculus of gallbladder with chronic cholecystitis without obstruction (principal)
CPT/HCPCS: 47562; 88304; J0330; J0690; J1100; J1170; J2001; J2250; J2405; J2704; J2710; J2765; J3010; J7120